=== PATIENT | female | born 1945 | race Caucasian/White ===

== ENCOUNTER 2019-01-09 03:15 | Emergency (ER) | payer MEDICARE, OTHER ==
[2019-01-09] MEDS ORDERED: Morphine 4 MG/ML VIAL (1 ml) 4 MG/ML VIAL IV ONE (03:46)
[2019-01-09] MEDS ORDERED: Ketorolac INJ* 30 MG/ML 1 ML VIAL IV ONE (03:46)
--- NOTE | 2019-01-09 03:56 | ED ---
Neck Pain - HPI Summary HPI Summary: Pt is a 73 y/o F presenting to the ED with a chief complaint of neck pain initially onset about 1 week ago. She had surgery on her R shoulder, and since the surgery she cannot sleep on that side. She recently had a cold, and one night during the night she took Nyquil, woke up on the R side, and her neck pain has been present since then. It has only been worsening, and it radiates to her ear. She reported a subjective fever with her URI to 99. She denies numbness/tingling in her extremities. - History of Current Complaint Chief Complaint: EDNeckComplaint Stated Complaint: NECK PAIN PER PT Time Seen by Provider: 01/09/19 03:39 Hx Obtained From: Patient Onset/Duration Of Injury/Symptoms: Hours Mechanism Of Injury: No Known Trauma Timing: Constant, Lasting Hours Onset/Duration: Gradual Onset, Started days ago Severity Initially: Moderate Severity Currently: Severe Pain Intensity: 7 Pain Scale Used: 0-10 Numeric Character: Stiff Aggravating Factors: Nothing Alleviating Factors: Nothing Associated Signs & Symptoms: Positive: Fever. Negative: Paresthesia - Allergies/Home Medications Allergies/Adverse Reactions: Allergies Allergy/AdvReac Type Severity Reaction Status Date / Time No Known Allergies Allergy Verified 01/09/19 03:22 PMH/Surg Hx/FS Hx/Imm Hx Previously Healthy: Yes Endocrine/Hematology History: Denies: Hx Diabetes, Hx Thyroid Disease Cardiovascular History: Denies: Hx Hypertension Respiratory History: Reports: Hx Asthma Denies: Hx Chronic Obstructive Pulmonary Disease (COPD) GI History: Reports: Hx Ulcer - reflux - Surgical History Surgery Procedure, Year, and Place: left leg shortening. right foot stabilization. tonsilectomy. csection x2 - Immunization History Immunizations Up to Date: Yes Infectious Disease History: No Infectious Disease History: Denies: Hx Clostridium Difficile, Hx Hepatitis, Hx Human Immunodeficiency Virus (HIV), Hx of Known/Suspected MRSA, Traveled Outside the [place] in Last 30 Days - Family History Known Family History: Negative: Diabetes - Social History Alcohol Use: None Hx Substance Use: No Substance Use Type: Reports: None Hx Tobacco Use: Yes Smoking Status (MU): Former Smoker Review of Systems Positive: Fever Positive: Myalgia - neck pain Negative: Paresthesia, Numbness All Other Systems Reviewed And Are Negative: Yes Physical Exam - Summary Physical Exam Summary: Constitutional: Well-developed, Well-nourished, Alert. (-) Distressed Skin: Warm, Dry HENT: Normocephalic; Atraumatic Eyes: Conjunctiva normal Neck: Midline and R paraspinal cervical tenderness. Limited ROM of the neck to R. (-) JVD, (-) Stridor, (-) Nuchal rigidity Cardio: Rhythm regular, rate normal, Heart sounds normal; Intact distal pulses; Radial pulses are 2+ and symmetric. (-) Murmur Pulmonary/Chest wall: Effort normal. (-) Respiratory distress, (-) Wheezes, (-) Rales Abd: Soft, (-) tenderness, (-) Distension, (-) Guarding, (-) Rebound Musculoskeletal: (-) Edema Lymph: (-) Cervical adenopathy Neuro: Alert, Oriented x3. Sensation and strength intact bilateral UE. Steady gait. Psych: Mood and affect Normal Triage Information Reviewed: Yes Vital Signs On Initial Exam: Initial Vitals Temp Pulse Resp BP Pulse Ox 99.2 F 117 16 156/100 98 01/09/19 03:16 01/09/19 03:16 01/09/19 03:16 01/09/19 03:16 01/09/19 03:16 Vital Signs Reviewed: Yes Diagnostics - Vital Signs Vital Signs Temp Pulse Resp BP Pulse Ox 01/09/19 03:41 109 152/112 96 01/09/19 03:40 112 94 01/09/19 03:16 99.2 F 117 16 156/100 98 - Laboratory Result Diagrams: 01/09/19 03:54 01/09/19 03:54 Lab Statement: Any lab studies that have been ordered have been reviewed, and results considered in the medical decision making process. - CT C-spine CT CT Interpretation Completed By: Radiologist Summary of CT Findings: 1. Multilevel degenerative changes with varying degrees of spinal or neural foraminal stenosis. 2. No acute fracture or subluxation. ED physician has reviewed this report. Re-Evaluation - Re-Evaluation 1st re-eval Re-Evaluation Time: 04:52 Change: Unchanged Comment: Pt feels better, HR in 80's after pain medication. Suspect tachycardia 2/2 pain. Labs notable for elevated CRP likely 2/2 recent viral illness. Lower suspicion for osteomyelitis or epidural abscess at this time given lack of risk factors or systemic symptoms. Discussed plan to return with worsening symptoms for further w/u such as MRI. Neck Course/Dx - Course Course Of Treatment: 73 y/o F p/w atraumatic R neck pain. - strength and sensation intact in UE. Pain to palpation of paraspinal R cspine, midline tenderness. - suspect MSK strain but will check labs and imaging including CT - Diagnoses Provider Diagnoses: Cervical strain Discharge ED - Sign-Out/Discharge Documenting (check all that apply): Patient Departure Patient Received Moderate/Deep Sedation with Procedure: No - Discharge Plan Condition: Stable Disposition: HOME Prescriptions: Cyclobenzaprine TAB* [Flexeril 10 MG TAB*] 10 mg PO TID PRN 4 Days #12 tab PRN Reason: Pain - Moderate Patient Education Materials: Cervical Strain (ED) Referrals: [facility] [Outside] Additional Instructions: You were seen in the emergency department for pain. Your CT scan showed chronic degenerative changes consistent with arthritis but no new fractures or cause for pain. Your labs showed a slightly elevated CRP which is inflammatory marker. Please return to emergency department if you have continued pain, fevers, worsening of your pain, weakness or numbness in your extremities. If any studies were not completed at the time of discharge you will be called with the relevant results. Please follow up with your primary care doctor in next 2-3 days and return to emergency department for worsening or concerning symptoms. It was a pleasure taking care of you today. - Billing Disposition and Condition Condition: STABLE Disposition: Home - Attestation Statements Document Initiated by Prabha: Yes Documenting Scribe: Keysha Goetz Provider For Whom Prabha is Documenting (Include Credential): Ky Varela MD. Scribe Attestation: Keysha Branch, scribed for Ky Varela MD. on 01/09/19 at 0455. Scribe Documentation Reviewed: Yes Provider Attestation: The documentation as recorded by the Keysha cardenas accurately reflects the service I personally performed and the decisions made by , Ky Varela MD. Status of Scribe Document: Viewed
[2019-01-09 04:02] LABS: ABS Basophils 0.1 10^3/ul (0-0.2); ABS Eosinophils 0.2 10^3/ul (0-0.6); ABS Lymphocytes 2.3 10^3/ul (1.0-4.8); ABS Monocytes 1.5 10^3/ul (0-0.8); Eosinophil % 1.5 %; Hematocrit 38 % (35-47); Hemoglobin 12.8 g/dL (12.0-16.0); Lymphocyte % 19.2 %; Mean Corpuscular HGB Conc 33 g/dL (31-36); Mean Corpuscular Hemoglobin 31 pg (27-31); Mean Corpuscular Volume 92 fL (80-97); Platelet Count 248 10^3/uL (150-450); Red Blood Count 4.15 10^6 /uL (3.70-4.87); Red Cell Distribution Width 14 % (10-15); White Blood Count 12.1 10^3/uL (3.5-10.8)
[2019-01-09 04:17] LABS: Albumin 4.4 g/dL (3.2-5.2); Albumin/Globulin Ratio 1.6 (1-3); BUN/Creatinine Ratio 22.7 (8-20); C Reactive Protein 44.54 mg/L (<8.01); Calcium 9.3 mg/dL (8.6-10.3); EGFR African American 91.7 (>60); EGFR Non-African American 75.7 (>60); Globulin 2.7 g/dL (2-4); Potassium 3.9 mmol/L (3.5-5.0); Total Bilirubin 0.5 mg/dL (0.2-1.0); Total Protein 7.1 g/dL (6.4-8.9)
[2019-01-09] MEDS ORDERED: Diazepam TAB(*) 5 MG PO ONE (04:26)
[2019-01-09 05:12] VITALS: BP 135/82
== END 2019-01-10 01:08 | disposition home or self-care (01) ==
LOC: ED 03:15
DX: S16.1XXA Strain of muscle, fascia and tendon at neck level, initial encounter (principal); X58.XXXA Exposure to other specified factors, initial encounter; Y92.9 Unspecified place or not applicable; M50.30 Other cervical disc degeneration, unspecified cervical region; M48.02 Spinal stenosis, cervical region; R50.9 Fever, unspecified; Z87.891 Personal history of nicotine dependence; M62.838 Other muscle spasm; J45.909 Unspecified asthma, uncomplicated; Z79.899 Other long term (current) drug therapy
CPT/HCPCS: 36415; 70498; 71046; 72125; 80053; 83605; 85025; 86140; 87040; 96372; 96374; 96375; 99282; A9270-GY; J1885; J2270; J2405; Q9967

== ENCOUNTER 2019-01-09 18:24 | Emergency (ER) | payer MEDICARE, OTHER ==
--- NOTE | 2019-01-09 20:44 | ED ---
Neck Pain - HPI Summary HPI Summary: Patient complains of right-sided neck pain 1 week. Patient was seen here last night for same symptoms. CT C-spine negative. Patient also states intermittent low-grade fever up to 100 and past 3 afternoon's. Denies any other symptoms of illness, pain or injury. Denies initial traumatic event. Denies neurological symptoms. Patient states neck pain has been progressive since it started. Patient was given Rx for cyclobenzaprine on prior visit which she states has provided no relief. - History of Current Complaint Chief Complaint: EDNeckComplaint Stated Complaint: BACK PAIN PER PT Time Seen by Provider: 01/09/19 20:16 Hx Obtained From: Patient Onset/Duration Of Injury/Symptoms: Days Mechanism Of Injury: No Known Trauma Timing: Constant, Lasting Days Onset/Duration: Gradual Onset Severity Initially: Mild Severity Currently: Severe Pain Intensity: 8 Pain Scale Used: 0-10 Numeric Location: Discrete At: Character: Dull, Aching Aggravating Factors: Position, Movement Alleviating Factors: Position Associated Signs & Symptoms: Positive: Negative - Allergies/Home Medications Allergies/Adverse Reactions: Allergies Allergy/AdvReac Type Severity Reaction Status Date / Time No Known Allergies Allergy Verified 01/09/19 03:22 PMH/Surg Hx/FS Hx/Imm Hx Endocrine/Hematology History: Denies: Hx Diabetes, Hx Thyroid Disease Cardiovascular History: Denies: Hx Hypertension Respiratory History: Reports: Hx Asthma Denies: Hx Chronic Obstructive Pulmonary Disease (COPD) GI History: Reports: Hx Ulcer - reflux History: Denies: Hx Dialysis Sensory History: Denies: Hx Eye Prosthesis Opthamlomology History: Denies: Hx Legally Blind EENT History: Denies: Hx Deafness Neurological History: Denies: Hx Dementia - Surgical History Surgery Procedure, Year, and Place: left leg shortening. right foot stabilization. tonsilectomy. csection x2 Infectious Disease History: No Infectious Disease History: Denies: Hx Clostridium Difficile, Hx Hepatitis, Hx Human Immunodeficiency Virus (HIV), Hx of Known/Suspected MRSA, Traveled Outside the [place] in Last 30 Days - Family History Known Family History: Negative: Diabetes - Social History Alcohol Use: None Hx Substance Use: No Substance Use Type: Reports: None Hx Tobacco Use: Yes Smoking Status (MU): Former Smoker Review of Systems Constitutional: Negative Eyes: Negative ENT: Negative Cardiovascular: Negative Respiratory: Negative Gastrointestinal: Negative Genitourinary: Negative Musculoskeletal: Other Skin: Negative Neurological: Negative Psychological: Normal All Other Systems Reviewed And Are Negative: Yes Physical Exam - Summary Physical Exam Summary: Tenderness along the right sternocleidomastoid muscle, right trapezius, and right paraspinal muscles of C-spine. No bony point tenderness of C-spine. Full range of motion of neck with pain. Negative Kernig's, negative Brudzinski. No carotid bruits. Full range of motion of jaw. Triage Information Reviewed: Yes Vital Signs On Initial Exam: Initial Vitals Temp Pulse Resp BP Pulse Ox 98.8 F 123 18 140/85 96 01/09/19 18:38 01/09/19 18:38 01/09/19 18:38 01/09/19 18:38 01/09/19 18:38 Vital Signs Reviewed: Yes Appearance: Positive: Well-Appearing Skin: Positive: Warm Head/Face: Positive: Normal Head/Face Inspection Eyes: Positive: Normal ENT: Positive: Normal ENT inspection Neck: Positive: Supple Respiratory/Lung Sounds: Positive: Clear to Auscultation Cardiovascular: Positive: Normal Abdomen Description: Positive: Nontender Musculoskeletal: Positive: Normal Neurological: Positive: Normal Psychiatric: Positive: Normal AVPU Assessment: Alert - [place] Coma Scale Best Eye Response: 4 - Spontaneous Best Motor Response: 6 - Obeys Commands Best Verbal Response: 5 - Oriented Coma Scale Total: 15 Procedures - Sedation Patient Received Moderate/Deep Sedation with Procedure: No Diagnostics - Vital Signs Vital Signs Temp Pulse Resp BP Pulse Ox 01/09/19 18:38 98.8 F 123 18 140/85 96 - Laboratory Result Diagrams: 01/09/19 21:19 01/09/19 21:19 Lab Statement: Any lab studies that have been ordered have been reviewed, and results considered in the medical decision making process. Neck Course/Dx - Course Course Of Treatment: Patient complains of right-sided neck pain 1 week. Patient was seen here last night for same symptoms. CT C-spine negative. Patient also states intermittent low-grade fever up to 100 and past 3 afternoon' s. Denies any other symptoms of illness, pain or injury. Denies initial traumatic event. Denies neurological symptoms. Patient states neck pain has been progressive since it started. Patient was given Rx for cyclobenzaprine on prior visit which she states has provided no relief. Patient initially tachycardic prior to pain control, as she was yesterday. Vital signs otherwise within normal limits. WBC 12.4. CRP 85. Labs otherwise unremarkable. Patient symptoms improved moderately with Valium 5 mg by mouth. Pain control further by morphine 4 mg Toradol 30 mg IM. CTA neck negative. Due to patient' s report of fever, current white count, and neck pain LP was considered. Patient's symptoms have been ongoing for a week, denies any symptoms of illness , and current presentation did not likely to be consistent with bacterial meningitis for 1 week.Patient decided to defer LP at this time. Vision opted to attempt a trial of Valium and ibuprofen for neck pain as symptoms had improved some with the Valium. Patient advised to have low threshold for returning to the ED for any signs of illness. - Diagnoses Provider Diagnoses: Neck muscle spasm Discharge ED - Sign-Out/Discharge Documenting (check all that apply): Patient Departure - Discharge Plan Condition: Stable Disposition: HOME Prescriptions: Diazepam TAB(*) [Valium TAB(*)] 5 mg PO TID PRN 2 Days #6 tab MDD 3 tabs PRN Reason: Spasms Patient Education Materials: Muscle Spasm (ED) Referrals: No Primary Care Phys,NOPCP [Primary Care Provider] - Additional Instructions: Take ibuprofen and cyclobenzaprine as directed during the day. Take Valium at night for muscle spasm. If neck pain and fever worsen, or symptoms of illness develop, return to the ED. - Billing Disposition and Condition Condition: STABLE Disposition: Home - Attestation Statements Provider Attestation: Patient presented to me by the ADDISON. Patient with 1 week of right-sided lateral neck pain and appeared fevers. Patient had a negative CT cervical spine the day prior to presentation. Patient had negative CTA here for vascular injury. Patient had no evidence of meningismus on exam when I examined the patient. LP was discussed with patient in regards to possible meningitis but patient declined.
[2019-01-09] MEDS: Diazepam TAB(*) 5 MG PO ONE (21:06)
[2019-01-09 21:31] LABS: ABS Basophils 0.1 10^3/ul (0-0.2); ABS Eosinophils 0.1 10^3/ul (0-0.6); ABS Lymphocytes 2.2 10^3/ul (1.0-4.8); ABS Monocytes 1.3 10^3/ul (0-0.8); ABS Neutrophils 8.7 10^3/ul (1.5-7.7); Hematocrit 37 % (35-47); Hemoglobin 12.2 g/dL (12.0-16.0); Lymphocyte % 17.6 %; Mean Corpuscular HGB Conc 33 g/dL (31-36); Mean Corpuscular Hemoglobin 31 pg (27-31); Mean Corpuscular Volume 92 fL (80-97); Mean Platelet Volume 8.4 fL (7.4-10.4); Platelet Count 234 10^3/uL (150-450); Red Blood Count 3.99 10^6 /uL (3.70-4.87); Red Cell Distribution Width 14 % (10-15); White Blood Count 12.4 10^3/uL (3.5-10.8)
[2019-01-09] MEDS: Iohexol 350* (CONTRAST) 500 ML MDV IV ONE (21:35)
[2019-01-09 21:45] LABS: Albumin 4.2 g/dL (3.2-5.2); Albumin/Globulin Ratio 1.4 (1-3); BUN/Creatinine Ratio 23.7 (8-20); C Reactive Protein 85.86 mg/L (<8.01); EGFR African American 90.3 (>60); EGFR Non-African American 74.6 (>60); Globulin 2.9 g/dL (2-4); Potassium 3.8 mmol/L (3.5-5.0); Total Bilirubin 0.4 mg/dL (0.2-1.0); Total Protein 7.1 g/dL (6.4-8.9)
[2019-01-10] MEDS: Ondansetron INJ* 2 MG/ML VIAL IV ONE (00:33)
[2019-01-10] MEDS: Morphine 4 MG/ML VIAL (1 ml) 4 MG/ML VIAL IV ONE (00:33)
[2019-01-10] MEDS: Ketorolac INJ* 30 MG/ML 1 ML VIAL IM ONE (00:33)
[2019-01-10 01:12] VITALS: BP 112/78
== END 2019-01-10 01:08 | disposition home or self-care (01) ==
LOC: ED 18:24
DX: M62.838 Other muscle spasm (principal); J45.909 Unspecified asthma, uncomplicated; Z87.891 Personal history of nicotine dependence; Z79.899 Other long term (current) drug therapy
CPT/HCPCS: 36415; 70498; 71046; 80053; 83605; 85025; 86140; 87040; 96372; 96374; 96375; 99282; A9270-GY; J1885; J2270; J2405; Q9967